=== PATIENT | female | born 1985 | race Caucasian/White ===

== ENCOUNTER 2025-08-21 14:36 | Outpatient (AMB) | payer MEDICARE, MEDICAID, SELFPAY ==
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
== END 2025-08-21 15:16 | disposition home or self-care (01) ==
LOC: HO.HSM 14:36
PROVIDERS: PCP Internal Medicine; Visit Provider Psychiatry & Neurology Neurology
DX: S09.8XXA Other specified injuries of head, initial encounter (principal); R47.01 Aphasia; R56.1 Post traumatic seizures; G81.90 Hemiplegia, unspecified affecting unspecified side
CPT/HCPCS: 99205

== ENCOUNTER → 2025-08-21 14:36 | Outpatient (BNVA) | payer MEDICARE, MEDICAID, SELFPAY | PROVIDERS: PCP Internal Medicine; Visit Provider Psychiatry & Neurology Neurology | DX: G81.11 Spastic hemiplegia affecting right dominant side (principal); R56.1 Post traumatic seizures; Z87.820 Personal history of traumatic brain injury; R47.01 Aphasia | CPT/HCPCS: 99202 ==